=== PATIENT | male | born 1960 | race Caucasian/White ===

== ENCOUNTER 2017-08-31 10:45 | Outpatient (CLI) | payer BC | END 2017-08-31 10:46 | LOC: LAB.R 10:45 | PROVIDERS: ATTEND Nurse Practitioner Family | DX: L03.019 Cellulitis of unspecified finger (principal) | CPT/HCPCS: 87070; 87205 ==

== ENCOUNTER 2017-09-22 10:45 | Outpatient (CLI) | payer BC ==
[2017-09-22 18:54] LABS: BASOPHILS # (AUTO) 0.1 10^3/uL (0.0-0.1); EOSINOPHILS # (AUTO) 0.1 10^3/uL (0.0-0.7); EOSINOPHILS % (AUTO) 1.4 %; HGB - HEMOGLOBIN 16.1 g/dL (14.0-18.0); LYMPHOCYTES # (AUTO) 1.4 10^3/uL (1.5-3.5); LYMPHOCYTES % (AUTO) 21.6 %; MEAN CORPUSCULAR HEMOGLOBIN 30.8 pg (27.0-31.0); MEAN CORPUSCULAR HGB CONC 32.9 g/dL (32.0-36.0); MEAN CORPUSCULAR VOLUME 93.8 fL (80.0-94.0); MEAN PLATELET VOLUME 7.4 fL (7.4-11.4); MONOCYTES # (AUTO) 0.5 10^3/uL (0.0-1.0); MONOCYTES % (AUTO) 7.9 %; NEUTROPHILS # (AUTO) 4.4 10^3/uL (1.5-6.6); NEUTROPHILS % (AUTO) 68.1 %; NUCLEATED RED BLOOD CELLS AUTO 0.1 /100WBC; RED BLOOD COUNT 5.22 10^6/uL (4.70-6.10); RED CELL DISTRIBUTION WIDTH 12.9 % (12.0-15.0); UNCORRECTED WHITE BLOOD COUNT 6.5 x10^3/uL; WHITE BLOOD COUNT 6.5 x10^3/uL (4.8-10.8)
[2017-09-22 19:40] LABS: ALBUMIN/GLOBULIN RATIO 1.3 (1.0-2.2); BILIRUBIN,TOTAL 0.8 mg/dL (0.2-1.0); BUN - BLOOD UREA NITROGEN 18 mg/dL (6-20); CARBON DIOXIDE - CO2 28 mmol/L (21-32); CHLORIDE 109 mmol/L (101-111); CHOL/HDL RATIO 5.6 (<5.0); CHOLESTEROL 174 mg/dL; CREATININE 0.9 mg/dL (0.6-1.2); GFR - MDRD 88 (>89); GLUCOSE 94 mg/dL (70-100); HDL CHOLESTEROL 31 mg/dL; POTASSIUM 4.2 mmol/L (3.5-5.0); SODIUM 142 mmol/L (135-145); TOTAL PROTEIN 7.3 g/dL (6.7-8.2)
[2017-09-22 19:56] LABS: LDL/HDL RATIO 3.5 (<3.6); TRIGLYCERIDES 174 mg/dL; VLDL CHOLESTEROL 35 mg/dL
== END 2017-09-22 10:46 | disposition home or self-care (01) ==
LOC: LAB.F 10:45
PROVIDERS: ATTEND Family Medicine
DX: Z00.00 Encounter for general adult medical examination without abnormal findings (principal); N40.0 Benign prostatic hyperplasia without lower urinary tract symptoms; N52.9 Male erectile dysfunction, unspecified; I10 Essential (primary) hypertension
CPT/HCPCS: 36415; 80053; 80061; 84153; 84403; 84443; 85025

== ENCOUNTER 2020-08-13 07:13 | Outpatient (CLI) | payer BC ==
[2020-08-13 14:41] LABS: BASOPHILS % (AUTO) 0.5 %; EOSINOPHILS # (AUTO) 0.1 10^3/uL (0.0-0.7); EOSINOPHILS % (AUTO) 1.8 %; HGB - HEMOGLOBIN 16.6 g/dL (14.0-18.0); LYMPHOCYTES # (AUTO) 1.3 10^3/uL (1.5-3.5); LYMPHOCYTES % (AUTO) 20.8 %; MEAN CORPUSCULAR HEMOGLOBIN 31.4 pg (27.0-31.0); MEAN CORPUSCULAR HGB CONC 32.7 g/dL (32.0-36.0); MEAN CORPUSCULAR VOLUME 96.2 fL (80.0-94.0); MEAN PLATELET VOLUME 10.1 fL (7.4-11.4); MONOCYTES # (AUTO) 0.6 10^3/uL (0.0-1.0); MONOCYTES % (AUTO) 10.1 %; NEUTROPHILS % (AUTO) 66.6 %; PLT - PLATELET COUNT 236 10^3/uL (130-450); RED BLOOD COUNT 5.28 10^6/uL (4.70-6.10); RED CELL DISTRIBUTION WIDTH 13.3 % (12.0-15.0); WHITE BLOOD COUNT 6.1 x10^3/uL (4.8-10.8)
[2020-08-13 14:58] LABS: ALBUMIN 4.2 g/dL (3.2-5.5); ALBUMIN/GLOBULIN RATIO 1.3 (1.0-2.2); ALKALINE PHOSPHATASE 57 IU/L (42-121); ALT ALANINE AMINOTRANSFERASE 43 IU/L (10-60); AST ASPARTATE AMINOTRANSFERASE 24 IU/L (10-42); BILIRUBIN,TOTAL 0.8 mg/dL (0.2-1.0); BUN - BLOOD UREA NITROGEN 19 mg/dL (6-20); CALCIUM 9.3 mg/dL (8.5-10.3); CARBON DIOXIDE - CO2 25 mmol/L (21-32); CHLORIDE 108 mmol/L (101-111); CHOL/HDL RATIO 5.1 (<5.0); CHOLESTEROL 203 mg/dL; GLUCOSE 118 mg/dL (70-100); HDL CHOLESTEROL 40 mg/dL; LDL CHOLESTEROL,CALCULATED 134 mg/dL; LDL/HDL RATIO 3.4 (<3.6); SODIUM 142 mmol/L (135-145); TOTAL PROTEIN 7.5 g/dL (6.7-8.2); VLDL CHOLESTEROL 29 mg/dL
[2020-08-13 19:34] LABS: HEMOGLOBIN A1c% 5.5 % (4.27-6.07)
== END 2020-08-13 07:14 | disposition home or self-care (01) ==
LOC: LAB.S 07:13
PROVIDERS: ATTEND Physician Assistant
DX: Z00.00 Encounter for general adult medical examination without abnormal findings (principal); Z13.220 Encounter for screening for lipoid disorders; I10 Essential (primary) hypertension; N40.0 Benign prostatic hyperplasia without lower urinary tract symptoms
CPT/HCPCS: 36415; 80053; 80061; 83036; 83721; 84153; 84443; 85025

== ENCOUNTER 2023-10-15 22:37 | Emergency (ER) | payer BC ==
--- NOTE | 2023-10-16 02:50 | ED Physician Documentation ---
PD HPI OPHTHO - Stated complaint Stated Complaint: LT EYE PX - Chief complaint Chief Complaint: Heent - History obtained from History obtained from: Patient - Additional information Additional information: HPI from patient. Patient complains of fluid that seems to be leaking from his left eye, onset a pproximately 90 minutes [employer]. He denies injury. 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 In addition to the chief complaint noted above, he also says that his eye appears to be markedly "deflated" (per patient) since the onset of the chief complaint. He also notes worsening of his vision in the left eye over this same timeframe; he says that on an average day, he can read the top letter on a Snellen chart but at this time he is having difficulty seeing my face when I'm standing at the bedside or the doorframe of his room (doorframe is a few feet from bed he is in). Patient denies any pain but also says he has no sensation of the left side of the face, including the eye, due to surgical complication referenced above. Review of Systems Eyes: reports: Decreased vision, Discharge. denies: Photophobia PD PAST MEDICAL HISTORY - Past Medical History Past Medical History: Yes - Past Surgical History Past Surgical History: Yes - Allergies Allergies/Adverse Reactions: Allergies Allergy/AdvReac Type Severity Reaction Status Date / Time Penicillins Allergy Unknown Verified 10/15/23 22:47 - Social History Does the pt smoke?: No Smoking Status: Never smoker Does the pt drink ETOH?: No Does the pt have substance abuse?: No - Immunizations Immunizations are current?: Yes PD ED PE NORMAL - Vitals Vital signs reviewed: Yes - General General: Alert and oriented X 3, No acute distress, Well developed/nourished PD ED PE EXPANDED - HEENT HEENT Visual: 1 - deformity (3mm diameter, deep ulceration with fluroescein uptake. negative elisabeth's) - Eyes Eyes: Fluorescein uptake, Other (left eye: injected conjunctiva. hazy cornea. pupil is irregular, constricted (patient says pupil findings are not new). left eye appears sunken compared to right. grossly visible defect of cornea 2-3mm diameter at the 5 o'clock position) Results - Vitals Vitals: Oxygen O2 Source Room air - Labs Labs: Laboratory Tests 10/16/23 00:42 SARS-CoV-2 (PCR) DETECTED A - Rads (name of study) CT maxillofacial Relevant Findings:: Prelim report reviewed, See rad report PD Medical Decision Making - ED course Complexity details: reviewed results, re-evaluated patient, considered differential, d/w patient ED course: Fluorescein uptake as noted above in what appears to be a deep corneal ulceration. The left eye appears sunken. While Elisabeth test is negative, my concern is that, if patient is indeed losing aqueous/vitreous humor through a corneal defect such as the ulceration, there might be inadequate intraocular pressure for an active leak at this time to be detected using fluorescein. 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 The patient is scheduled to have his initial appointment with Dr. Wray ([facility] ophthalmology) this coming week. We attempted to contact Dr. Wray, but he is not on-call at this time. I contacted Dr. Louie ([facility] ophthalmology on-call). She accepts patient for transfer to [facility] emergency department, requests that we obtain maxillofacial CT but that patient can be transferred regardless of the findings. A hard plastic eye protector is placed over left eye per Dr. Louie's recommendation, as well. Patient is incidentally positive for COVID and [facility] is notified of this result. Departure - Departure Disposition: 02 Transfer Acute Care Hosp Clinical Impression: COVID-19 Ruptured globe of left eye Qualifiers: Encounter type: initial encounter Qualified Code(s): S05.32XA - Ocular laceration without prolapse or loss of intraocular tissue, left eye, initial encounter Condition: Stable Forms: PCP List Discharge Date/Time: 10/16/23 04:46
[2023-10-16 04:37] VITALS: BP 112/62; O2SAT 98
--- NOTE | 2023-10-16 08:54 | CT Report ---
PROCEDURE: Maxillofacial WO INDICATIONS: possible left orbit rupture TECHNIQUE: Noncontrast 1.5 mm thick axial images acquired from the mandible through the frontal sinuses, with co ross and sagittal reformatting. For radiation dose reduction, the following was used: automated ex posure control, adjustment of mA and/or kV according to patient size. COMPARISON: None. FINDINGS: Image quality: Diagnostic. Bones and teeth: Orbital mcadams are intact. Sinus mcadams show no fracture or deformity. Nasal bones and septum are intact. Leftward directed nasal septal spur is seen posteriorly. Visualized portions of the mandible demonstrate no fractures or subluxation. Zygomatic arches are intact. Pterygoid merline driss are intact. Visualized portions of the skull base and auditory canals are intact. Sinuses: Partially opacified right posterior ethmoid air cells. Remainder of visualized paranasal ar e clear. Mastoid air cells are aerated. Soft tissues: Bilateral lens replacement. Implanted device is seen above the left globe. No edema, m asses, or fluid collections. No enlarged lymph nodes. No soft tissue lacerations or debris. Vascular: Visualized vascular structures appear normal in the absence of contrast. Bony vascular fo ramina and canals are intact. IMPRESSION: No acute craniofacial abnormality. Implanted device superior to the left globe. Mild muc osal thickening of the right posterior ethmoid air cells is nonspecific. Findings are concordant with preliminary interpretation provided by [facility]. Reviewed by: June Nieves MD on 10/16/2023 8:53 AM [facility] Approved by: June Nieves MD on 10/16/2023 8:53 AM PST Station ID: [id number]
== END 2023-10-16 04:46 | disposition short-term general hospital (02) ==
LOC: ED 22:37
DX: S05.32XA Ocular laceration without prolapse or loss of intraocular tissue, left eye, initial encounter (principal); U07.1 COVID-19; X58.XXXA Exposure to other specified factors, initial encounter
CPT/HCPCS: 87635; 99284; 99285